=== PATIENT | female | born 1970 ===

== ENCOUNTER → 2023-09-03 06:48 | Outpatient (REF) | payer OTHER, SELFPAY | LOC: HWWDC 06:48 | PROVIDERS: ATTENDING PHYSICIAN Internal Medicine | DX: Z12.31 Encounter for screening mammogram for malignant neoplasm of breast (principal) | CPT/HCPCS: 77063; 77067 ==

== ENCOUNTER 2023-10-02 01:34 | Emergency (ER) | payer OTHER, SELFPAY ==
[2023-10-02] VITALS (10 sets, daily range): BP systolic 90–127; BP diastolic 66–93; PULSE 91–99; BMI 27.6
--- NOTE | 2023-10-02 02:01 | ED.GENMED ---
History of Present Illness
<BRANNON Cardona - Last Filed: 10/02/23 05:45>
General
Chief Complaint: Fainting/Passed Out
Source: patient
Exam Limitations: none
Time Seen by Provider: 10/02/23 02:00
Nursing documentation reviewed up to this point in time: agreed with
Travel History
Have you had any contact with someone who has COVID-19?: No
Do you have any symptoms of coronavirus? Fever > 100 degrees, chills, cough, shortness of breath, sore throat, loss of taste or smell, muscle aches, or headache?: No
History of Present Illness
History of Present Illness:
This is a 53 year old female with iron deficiency anemia and hyperthyroid who presents to the ER after a syncopal episode x2 hours. She states she went to the bathroom around 0025 and shortly after she found herself on the floor outside of the
bathroom with a chin laceration. She also reports right headed temporal and facial pain. She reports mild lightheadedness and nausea. She denies dizziness, chest pain, or sob. She reports earlier today she donated blood without complications. She
had fluids and crackers after the blood donation. She also went out for dinner and had 2 alcoholic beverages.
Review of Systems
<BRANNON Cardona - Last Filed: 10/02/23 05:45>
Review of Systems
Allergies reviewed?: Yes
All Other Systems: Not applicable
Constitutional: Reports other (Lightheadedness )
EENT: Reports no symptoms
Respiratory: Reports no symptoms
Cardiac: Reports no symptoms
ABD/GI: Reports nausea
: Reports no symptoms
Musculoskeletal: Reports no symptoms
Skin: Reports no symptoms
Neurological: Reports headache (R sided )
Endocrine: Reports no symptoms
Hematologic/Lymphatic: Reports no symptoms
Psychiatric: Reports no symptoms
Phy Exam
<BRANNON Cardona - Last Filed: 10/02/23 05:45>
General Physical Exam
General Presentation: well appearing and no apparent distress
General Skin: warm and dry
General Habitus: normal
General Mental: alert
General Hydration: appears well hydrated
ENT Exam
ENT Exam: EOMI, pharynx normal, neck supple and normocephalic
Eye Exam
Eye Exam: PERRL, cornea clear and conjunctiva normal
Cardiovascular Exam
Cardiovascular Exam: regular rate/rhythm, no edema, no murmur and normal peripheral pulses
Pulmonary Exam
Pulmonary Exam: lungs clear, no respiratory distress, no rales, no crackles, no rhonchi, no stridor, no wheezing and no cough
Gastrointestinal Exam
Gastrointestinal Exam: normal bowel sounds, non tender, soft, no organomegaly, no pulsatile mass and non distended
Neurological Exam
Neurological Exam: alert, oriented x3, no motor deficits and speech normal
Musculoskeletal Exam
Musculoskeletal Exam: full ROM and no edema
Skin Exam
Skin Exam: normal color, warm/dry, no rash, no petechia and laceration (3cm chin laceration)
Psychiatric Exam
Psychiatric Exam: normal mood/affect
Course
<Noemy Sifuentes [facility] - Last Filed: 10/02/23 05:45>
Orders/Labs/Results
Orders:
Orders
10/02/23 02:26
EKG [Electrocardiogram (*1)] Urgent
Reason for Study: Syncope
EKG- Treatment ONCE
10/02/23 03:33
Complete Blood Count/With Diff Urgent
Comprehensive Metabolic Panel Urgent
Troponin I Urgent
10/02/23 04:40
Orthostatic VS- Treatment ONCE
0.9% Sodium Chloride 1000 ml [Nss] 1,000 ml IV BOLUS
Tetanus/Diphth/Acelpertussis [Adacel] 0.5 ml IM .ONCE ONE
Abnormal Lab Results
10/02/23
03:33
RBC 4.13 L 10^6/uL
(4.20-5.40)
Hgb 11.8 L g/dL
(12.0-16.0)
Hct 34.9 L %
(37.0-47.0)
Absolute Lymphs (auto) 1.1 L 10^3/uL
(1.2-3.4)
Neutrophils % 80.9 H %
(42.2-75.2)
Lymphocytes % 14.7 L %
(20.5-51.1)
BUN 20 H mg/dl
(7-17)
Glucose 116 H mg/dl
(70-99)
AST 74 H U/L
(14-36)
ALT 38 H U/L
(0-35)
10/02/23 03:33
10/02/23 03:33
Vital Signs
Initial and Last Documented VS:
Initial Vital Signs
Temp Pulse Resp BP Pulse Ox
98 F 104 20 90/66 98
10/02/23 01:36 10/02/23 01:36 10/02/23 01:36 10/02/23 01:36 10/02/23 01:36
Last Documented Vital Signs
Temp Pulse Resp BP Pulse Ox
98 F 92 17 101/66 94
10/02/23 01:36 10/02/23 04:00 10/02/23 04:00 10/02/23 04:00 10/02/23 04:00
<Barber Haro, - Last Filed: 10/02/23 05:22>
Orders/Labs/Results
Orders:
Orders
10/02/23 02:26
EKG [Electrocardiogram (*1)] Urgent
Reason for Study: Syncope
EKG- Treatment ONCE
10/02/23 03:33
Complete Blood Count/With Diff Urgent
Comprehensive Metabolic Panel Urgent
Troponin I Urgent
10/02/23 04:40
Orthostatic VS- Treatment ONCE
0.9% Sodium Chloride 1000 ml [Nss] 1,000 ml IV BOLUS
Tetanus/Diphth/Acelpertussis [Adacel] 0.5 ml IM .ONCE ONE
Abnormal Lab Results
10/02/23
03:33
RBC 4.13 L 10^6/uL
(4.20-5.40)
Hgb 11.8 L g/dL
(12.0-16.0)
Hct 34.9 L %
(37.0-47.0)
Absolute Lymphs (auto) 1.1 L 10^3/uL
(1.2-3.4)
Neutrophils % 80.9 H %
(42.2-75.2)
Lymphocytes % 14.7 L %
(20.5-51.1)
BUN 20 H mg/dl
(7-17)
Glucose 116 H mg/dl
(70-99)
AST 74 H U/L
(14-36)
ALT 38 H U/L
(0-35)
10/02/23 03:33
10/02/23 03:33
Vital Signs
Initial and Last Documented VS:
Initial Vital Signs
Temp Pulse Resp BP Pulse Ox
98 F 104 20 90/66 98
10/02/23 01:36 10/02/23 01:36 10/02/23 01:36 10/02/23 01:36 10/02/23 01:36
Last Documented Vital Signs
Temp Pulse Resp BP Pulse Ox
98 F 92 17 101/66 94
10/02/23 01:36 10/02/23 04:00 10/02/23 04:00 10/02/23 04:00 10/02/23 04:00
<Noemy Baer, STPA - Last Filed: 10/02/23 05:45>
MDM/Problems Addressed
Differential Diagnosis Includes:
Vasovagal syncope vs orthostatic syncope, chin laceration, dehydration
Orthostatic syncope considered but she denies dizziness with position changes. Vasovagal syncope triggered by dehydration considered due to patient's history of blood donation with alcohol consumption. Her blood pressure in the ER is also 90/66. She
also has a chin laceration visible on her chin.
<BRANNON Cardona - Last Filed: 10/02/23 05:45>
*Critical Care Note
Total Time (30-74mins, 75-104mins- exclusive of procedures): Not Applicable
ED Attending Note
<BRANNON Cardona - Last Filed: 10/02/23 05:45>
-
Portions of this chart may have been created with voice recognition software.� Occasional wrong word or��sound alike� substitutions may have occurred due to the inherent limitations of voice recognition software.
<Barber Haro DO - Last Filed: 10/02/23 05:22>
ED Attending Note
Patient seen and examined by attending physician: Yes
I performed the substantive portion of visit, reviewed & personally made and approve the management plan that is documented in note by myself or LAXMI.: Yes
ED Attending Note:
Pleasant 53-year-old female presents with syncopal episode. Patient states that she got up to go to the bathroom and fell striking her head, causing a chin laceration. Patient denies chest pain or shortness of breath. Earlier in the day, patient
donated blood. She also went out to dinner and drank 2 alcoholic beverages. Patient was seen in conjunction with the PA student. I have reviewed and agree with the history and treatment plan presented. On my independent physical exam, patient is
awake, alert, and oriented x3, no acute distress at this time. Heart is regular rate and rhythm. Lungs are clear to auscultation bilateral without wheezes rales or rhonchi, patient moves all [address] scan with patient and . She has no acute distress. She states that she has had minor headaches worse than the current headache that she has. She does not feel any neurological deficits. None are detectable by . She
wishes to defer at this time. She will return if there are any changing or worsening of symptoms.
Discharge Plan
Departure
Patient Disposition: Home (Routine Discharge)
Date of Disposition: 10/02/23
Time of Disposition: 05:39
Patient with high blood pressure during this ER visit?: No
Condition: Good
Discharge Problem:
Syncope and collapse, Vasovagal syncope, Laceration
Instructions: Laceration Repair With Glue (DC), Wound Care (DC), Syncope (Fainting) (DC)
Prescriptions:
No Action
No Current Medications
0
Referrals:
Karina Mims MD [Family Provider] -
Stand Alone Forms: Return to Work
Activity Restrictions/Additional Instructions:
It was a pleasure meeting you and taking part in your care. We hope for your continued healing and wellness.
Please read discharge instructions in their entirety. However, they are for general education and may not describe your exact diagnosis at discharge. Information on your ER visit and medical conditions were discussed with you along with appropriate
follow up information...
If indicated, please take your medications as instructed and indicated on discharge paperwork.
Please schedule a follow up appointment as directed. Call to schedule an appointment
Please return to the emergency department with ANY change in, persisting, or worsening of symptoms. If any of your symptoms do not improve, or persist, or become more severe within 6-12 hours, please return to the emergency department for further
care.
Please return to the emergency department if you develop a headache, neck pain/stiffness, fever greater than 100.4F, chest pain, shortness of breath, persistent nausea, vomiting, slurred speech, difficulty walking, numbness/tingling, weakness, signs
of infection or any other symptoms that are worrisome to you.
If you have any questions or concerns please do not hesitate to call the Hospital at or E-mail me directly at [email or web address]
Interventions
Interventions:
*Risk Screen - Suicide Last Done: 10/02/23 01:36
*General Assessment Last Done: 10/02/23 02:36
*Neglect/Abuse Screening Last Done: 10/02/23 01:36
ED- Fall Risk Assessment Last Done: 10/02/23 02:36
*ED COVID-19 Vaccine History Last Done: 10/02/23 02:36
ED- Cardiac Assessment Last Done: 10/02/23 02:36
ED- Neurological Assessment Last Done: 10/02/23 02:36
ED-Skin Assessment Last Done: 10/02/23 02:36
Discharge Date and Time
Print Language: [id number]
[2023-10-02 04:10] LABS: % Basophils 0.6 % (0-2); % Eosinophils 0.1 % (0-6); % Immature Granulocytes 0.4 % (0-0.5); % Lymphocytes 14.7 % (20.5-51.1); % Monocytes 3.3 % (1.7-9.3); % Neutrophils 80.9 % (42.2-75.2); Absolute Lymphocytes 1.1 10^3/uL (1.2-3.4); Absolute Monocytes 0.2 10^3/uL (0.1-0.6); Absolute Neutrophils 5.8 10^3/uL (1.4-6.5); Hematocrit 34.9 % (37.0-47.0); Hemoglobin 11.8 g/dL (12.0-16.0); Mean Corp Hgb Conc. 33.8 g/dL (33.0-37.0); Mean Corpuscular Hgb 28.6 pg (27.0-31.0); Mean Corpuscular Volume 84.5 fL (81.0-99.0); Nucleated Red Blood Cells % 0 %; Platelet Count 283 10^3/uL (130-400); Red Blood Cell Count 4.13 10^6/uL (4.20-5.40); Red Cell Dist. Width 12.9 % (11.5-14.5); White Blood Cell Count 7.2 10^3/uL (4.8-10.8)
[2023-10-02 04:25] LABS: ALT (SGPT) 38 U/L (0-35); AST (SGOT) 74 U/L (14-36); Albumin 4.2 g/dl (3.5-5.0); Alkaline Phosphatase 56 U/L (38-126); Blood Urea Nitrogen 20 mg/dl (7-17); Calcium 9.5 mg/dl (8.4-10.2); Carbon Dioxide 25 mmol/L (22-30); Chloride 105 mmol/L (98-107); Estimated Creatinine Clearance 101 ml/min; Glucose 116 mg/dl (70-99); Potassium 4.4 mmol/L (3.5-5.1); Sodium 137 mmol/L (135-145); Total Bilirubin 0.4 mg/dl (0.2-1.3); Total Protein 6.7 g/dl (6.3-8.2); eGFR > 60.00
[2023-10-02 04:35] LABS: Troponin I < 0.012 ng/ml
[2023-10-02] MEDS: NSS 1000 IV (04:44)
[2023-10-02] MEDS: ADACEL 0.5 ML IM (05:03)
== END 2023-10-02 06:09 | disposition home or self-care (01) ==
LOC: EMR 01:34
PROVIDERS: EMERGENCY PHYSICIAN Student in an Organized Health Care Education/Training Program; FAMILY PHYSICIAN Internal Medicine
DX: R55 Syncope and collapse (principal); S01.81XA Laceration without foreign body of other part of head, initial encounter; W19.XXXA Unspecified fall, initial encounter; Z23 Encounter for immunization
CPT/HCPCS: 99284; 96360; 90471; 12013; 80053; 84484; 85025; 90715; 93005

== ENCOUNTER → 2024-11-11 08:08 | Outpatient (REF) | payer OTHER, SELFPAY | LOC: HWWDC 08:08 | PROVIDERS: ATTENDING PHYSICIAN Internal Medicine; REFERRING PHYSICIAN Obstetrics & Gynecology | DX: Z12.31 Encounter for screening mammogram for malignant neoplasm of breast (principal) | CPT/HCPCS: 77063; 77067 ==

== ENCOUNTER 2025-05-27 06:39 | Day surgery (SDC) | payer OTHER, SELFPAY | END 2025-05-27 11:53 | disposition home or self-care (01) | LOC: GI 06:39 | PROVIDERS: ATTENDING PHYSICIAN Internal Medicine | DX: D50.9 Iron deficiency anemia, unspecified (principal); K64.9 Unspecified hemorrhoids; K63.89 Other specified diseases of intestine; D12.3 Benign neoplasm of transverse colon; K63.5 Polyp of colon; K44.9 Diaphragmatic hernia without obstruction or gangrene; K22.89 Other specified disease of esophagus; K29.50 Unspecified chronic gastritis without bleeding; K20.90 Esophagitis, unspecified without bleeding; Z80.0 Family history of malignant neoplasm of digestive organs | CPT/HCPCS: 45385; 45380; 43239; 88305; 88342 ==